=== PATIENT | male | born 1980 | race African-American/Black ===

== ENCOUNTER 2020-10-23 11:20 | Emergency (ER) | payer BC ==
[~2020-10-23] VITALS: Ht 180.3 cm; Wt 84.1 kg
[2020-10-23 11:32] VITALS: TEMP 99.2
[2020-10-23 12:00] LABS: BASO % 0.2 % (0.0-2.0); EOS # 0.2 (0.0-0.7); GRAN % 66.5 % (42.2-75.2); HEMATOCRIT 41.9 % (42.0-52.0); HEMOGLOBIN 14.5 g/dl (13.5-18.0); LYMPH # 2.4 (1.2-3.4); LYMPH % 20.2 % (20.0-51.0); MEAN CELL VOLUME 92 fl (80.0-100.0); MEAN CORPUSCULAR HEMOGLOBIN 32 pg (27.0-31.0); MEAN CORPUSCULAR HGB CONC 35 g/dl (33.0-37.0); MEAN PLATELET VOLUME 8.5 fl (7.4-10.4); MONO # 1.3 (0.1-0.6); MONO % 10.9 % (1.7-9.3); PLATELET COUNT 227 K/mm3 (130-400); RED BLOOD COUNT 4.54 M/mm3 (4.20-5.60); REDCELL DISTRIBUTION WIDTH-CV 11.5 % (11.5-14.5)
[2020-10-23 12:25] LABS: ALBUMIN 4.6 gm/dL (3.5-5.0); BILIRUBIN,TOTAL 1.3 mg/dL (0.0-1.0); CALCIUM 9.4 mg/dL (8.4-10.2); CREATININE, serum 1.37 (0.66-1.25)
[2020-10-23 12:56] LABS: COLLECTION METHOD CLEAN CATCH
[2020-10-23 13:02] LABS: MUCOUS Present /lpf; PH 5 (5-8); URINE APPEARANCE Hazy; URINE BACTERIA Rare /hpf; URINE BILIRUBIN Negative (NEGATIVE); URINE BLOOD 1+ (NEGATIVE); URINE COLOR Yellow; URINE GLUCOSE Negative (NEGATIVE); URINE KETONE Negative (NEGATIVE); URINE LEUKOCYTE ESTERASE Negative (NEGATIVE); URINE NITRATE Negative (NEGATIVE); URINE PROTEIN(semi-quant) Negative (NEGATIVE); URINE RBC 0-2 /hpf; URINE UROBILINOGEN Negative (NEGATIVE)
[2020-10-23] MEDS ORDERED: FLAGYL500 MG PO (14:00)
[2020-10-23] MEDS ORDERED: NORCO 325 MG-51 TAB PO (14:00)
[2020-10-23] MEDS ORDERED: CIPRO 500MG TA500 MG PO (14:00)
[2020-10-23 14:45] VITALS: BP 144/90; PULSE 91
== END 2020-10-23 14:45 | disposition home or self-care (01) ==
LOC: COL.ER 11:20
PROVIDERS: Nurse Practitioner
DX: K57.32 Diverticulitis of large intestine without perforation or abscess without bleeding (principal)
CPT/HCPCS: J1170; J2405; J7030; Q9967